=== PATIENT | male | born 1990 | race Two or more races ===

== ENCOUNTER 2017-03-27 11:21 | Emergency (ER) | payer SELFPAY ==
--- NOTE | ~2017-03-27 | CT52 ---
[facility]. [facility] A Service of [facility] & [facility] RADIOLOGY TEXT RESULTS PATIENT: DEONNA FELDER LOCATION: SED : [birth year] UNIT #: [id number] AGE: [address]: Ginna Baca SEX: M ORDER DR: [id number] [address] [address] [id number] E MR#: [id number] Acc #: [id number] NAME: DEONNA FELDER : 1990 SEX: M STUDY DATE/TIME: 03/27/2017 13:30 UNIT: SED ROOM: STUDY DESCRIPTION: CT Cervical Spine Wo Cont Attending Physician: Ginna Baca Pa-C Ordering Physician: Ginna Baca Pa-C Primary Care Physician: Flavio Cui M.D. MEDICAL IMAGING REPORT This report is preliminary unless electronic signature is present. EXAM CT cervical spine without contrast HISTORY Pain in left shoulder radiating to back neck complaint times today. No known injury. FINDINGS CT cervical spine performed without administration of intravenous contrast. This CT exam was performed with one or more of the following radiation dose reduction techniques: automatic control, adjustment of mA and/or kV according to patient size, and iterative reconstruction. Bone and soft tissue windows are reviewed. Sagittal and coronal reconstructions performed. The visualized portions of brain are unremarkable. Visualized paranasal sinuses and mastoid air cells are clear. The nasopharyngeal oropharyngeal, pharyngeal mucosal retropharyngeal spaces larynx subglottic airway unremarkable. Superior mediastinum unremarkable. Lung apices clear. No adenopathy. Unopacified vascular structures unremarkable. No fracture or traumatic malalignment. Congenital nonunion posterior elements C6-C7. The vertebral body heights and intervertebral disc space heights are within normal limits. Alignment is normal. Facet joint relationships normal. No significant disc bulge or herniation. Spinal canal diameter is normal. The neural foramina are patent without evidence of exiting nerve impingement. IMPRESSION 1. There is no fracture or traumatic malalignment. 2. No significant disc bulge. Spinal canal diameter normal. The neural foramina are patent without evidence of exiting nerve impingement. 3. No acute appearing paraspinal soft tissue abnormality. [facility] A Service of [facility] & [facility] RADIOLOGY TEXT RESULTS PATIENT: DEONNA FELDER LOCATION: SED : [birth year] UNIT #: [id number] AGE: [address]: Ginna Baca SEX: M ORDER DR: Dictated by... Jimmie Frias M.D. THIS IS AN ELECTRONICALLY VERIFIED REPORT Jimmie Frias M.D. at 03/29/2017 2:31 PM LEONIE/tegan TD: 03/28/2017 00:55 JOB #: [id number] MEDICAL IMAGING REPORT Page 1 of 1
[~2017-03-27 11:21] MED LIST: BACTRIM DS TABL1 TA1 PO; HYDROCODON-ACE1 EA12; KEFLEX500 M1 PO; LORTAB 5-325 M1 EACH; NO MEDICATIONS; SILVADENE TOP; TYLENOL #3 PO; VOLTAREN75 MG PO; ZITHROMAX PO; ZYVOX PO
== END 2017-03-27 14:20 | disposition home or self-care (01) ==
LOC: SED 11:21
DX: M54.12 Radiculopathy, cervical region (principal); F17.200 Nicotine dependence, unspecified, uncomplicated
CPT/HCPCS: 72125; 99283